=== PATIENT | female | born 2000 | race Asian ===

== ENCOUNTER 2022-12-04 08:00 | Outpatient (CLI) | payer OTHER ==
[2022-12-04 12:44] LABS: BILIRUBIN,URINE NEGATIVE (NEGATIVE); GLUCOSE, URINE (UA) NEGATIVE (NEGATIVE); KETONES,URINE (UA) TRACE mg/dL (NEGATIVE); LEUKOCYTE ESTERASE, URINE NEGATIVE (NEGATIVE); NITRITE,URINE NEGATIVE (NEGATIVE); OCCULT BLOOD,URINE NEGATIVE (NEGATIVE); PROTEIN,URINE NEGATIVE (NEGATIVE); UROBILINOGEN,URINE 0.2 (NORMAL) E.U./dL (NORMAL)
[2022-12-04 12:56] LABS: CLARITY,URINE CLEAR (CLEAR)
[2022-12-04 15:36] LABS: BACTERIA,URINE Few /HPF (None Seen); RBC,URINE 0-5 /HPF (0-5); SQUAMOUS EPITHELIAL CELL,UR FEW Squamous (<= Few); WBC,URINE 0-3 /HPF (0-5)
== END 2022-12-04 23:59 | disposition home or self-care (01) ==
LOC: LAB.WC 08:00
PROVIDERS: ATTEND Nurse Practitioner
DX: Z34.90 Encounter for supervision of normal pregnancy, unspecified, unspecified trimester (principal)
CPT/HCPCS: 81001; 87086

== ENCOUNTER 2022-12-24 12:32 | Outpatient (CLI) | payer OTHER ==
--- NOTE | 2022-12-24 16:23 | Ultrasound Report ---
PROCEDURE: OB First Trimester w/TV INDICATIONS: ROUTINE MAMMO OUTSIDE/PRIOR DATING DATA: Last menstrual period (LMP): 10/03/2022. LMP-based estimated date of delivery (KAYLEE): 07/10/2023. First dating scan (date and location): 12/24/2022. Estimated date of delivery (KAYLEE) from first dating scan: 07/15/2023. TECHNIQUE: Real-time scanning was performed of the fetus and maternal pelvic organs, with image documentation. Endovaginal scanning was also performed to better visualize the fetus and maternal ovaries. COMPARISON: FINDINGS: Embryo: Single intrauterine is identified with crown-rump length measuring 4.2 cm correspo nding to 11 Heart rate: 167 bpm. Measurement variability in dating: +/- 4 weeks by LMP, +/- 7 days by mean sac diameter (use before 6 weeks gestation if crown-rump length not able to be measured), +/- 5 days by crown-rump length (6-12 weeks gestation). Maternal organs: Ovaries are within normal limits. IMPRESSION: Single live intrauterine with ultrasound gestational age of 11 weeks 0 days Recommend follow-up imaging at 20-22 weeks for dates and anatomy. weeks 0 days. Reviewed by: Rea Mcdonough MD on 12/24/2022 4:21 PM PDT Approved by: Rea Mcdonough MD on 12/24/2022 4:21 PM PDT Station ID: [id number]
== END 2022-12-24 12:33 | disposition home or self-care (01) ==
LOC: DI 12:32
PROVIDERS: ATTEND Nurse Practitioner
DX: Z34.91 Encounter for supervision of normal pregnancy, unspecified, first trimester (principal)

== ENCOUNTER 2022-12-30 08:00 | Outpatient (CLI) | payer OTHER ==
[2022-12-30 21:48] LABS: CHLAMYDIA TRACHOMATIS DNA NEGATIVE (NEGATIVE); NEISSERIA GONORRHOEAE DNA NEGATIVE (NEGATIVE); TRICHOMONAS VAGINALIS DNA NEGATIVE (NEGATIVE)
== END 2022-12-30 23:59 | disposition home or self-care (01) ==
LOC: LAB.WC 08:00
PROVIDERS: ATTEND Obstetrics & Gynecology
DX: Z34.90 Encounter for supervision of normal pregnancy, unspecified, unspecified trimester (principal)
CPT/HCPCS: 36415; 85025; 86592; 86762; 86787; 86803; 86850; 86900; 86901; 87340; 87389; 87491; 87591; 87661

== ENCOUNTER 2022-12-30 14:36 | Outpatient (CLI) | payer OTHER ==
[2022-12-30 15:01] LABS: BASOPHILS % (AUTO) 0.4 %; EOSINOPHILS # (AUTO) 0.1 10^3/uL (0.0-0.7); EOSINOPHILS % (AUTO) 1.3 %; HCT - HEMATOCRIT 38.8 % (37.0-47.0); HGB - HEMOGLOBIN 12.5 g/dL (12.0-16.0); LYMPHOCYTES # (AUTO) 1.2 10^3/uL (1.5-3.5); LYMPHOCYTES % (AUTO) 15.1 %; MEAN CORPUSCULAR HEMOGLOBIN 21.2 pg (27.0-31.0); MEAN CORPUSCULAR HGB CONC 32.2 g/dL (32.0-36.0); MEAN CORPUSCULAR VOLUME 65.8 fL (81.0-99.0); MONOCYTES # (AUTO) 0.6 10^3/uL (0.0-1.0); MONOCYTES % (AUTO) 7.4 %; NEUTROPHILS # (AUTO) 6.2 10^3/uL (1.5-6.6); NEUTROPHILS % (AUTO) 75.4 %; PLT - PLATELET COUNT 279 10^3/uL (130-450); RED CELL DISTRIBUTION WIDTH 18.8 % (12.0-15.0); WHITE BLOOD COUNT 8.2 x10^3/uL (4.8-10.8)
[2022-12-30 15:37] LABS: PLATELET ESTIMATE, MANUAL NORMAL (130-450,000) (NORMAL); PLATELET MORPHOLOGY NORMAL APPEARANCE (NORMAL); SLIDE REVIEW? Indicated
[2022-12-31 04:09] LABS: HCV AB Non Reactive (Non Reactive); HIV SCREEN 4TH GENERATION Non Reactive (Non Reactive)
[2022-12-31 08:09] LABS: RPR Non Reactive (Non Reactive)
[2022-12-31 09:10] LABS: VARICELLA-ZOSTER AB IGG 2245 index (Immune >165)
== END 2022-12-30 14:37 | disposition home or self-care (01) ==
LOC: LAB 14:36
PROVIDERS: ATTEND Nurse Practitioner
DX: Z34.90 Encounter for supervision of normal pregnancy, unspecified, unspecified trimester (principal)
CPT/HCPCS: 36415; 85025; 86592; 86762; 86787; 86803; 86850; 86900; 86901; 87340; 87389

== ENCOUNTER 2023-02-19 13:37 | Outpatient (CLI) | payer OTHER ==
--- NOTE | 2023-02-19 15:46 | Ultrasound Report ---
PROCEDURE: OB Detailed Eval INDICATIONS: SUPERVISION OF OUTSIDE/PRIOR DATING DATA: Last menstrual period (LMP): 10/03/2022. LMP-based estimated date of delivery (KAYLEE): 07/10/2023. First dating scan (date and location): 12/24/2022. Estimated date of delivery (KAYLEE) from first dating scan: 07/15/2023. The below data below was generated using the ultrasound KAYLEE of 07/15/2023 TECHNIQUE: Real-time scanning was performed of the fetus, with image documentation and biometric measurements. COMPARISON: OB ultrasound 12/24/2022. FINDINGS: General: A single living intrauterine gestation is present. Presentation: Breech Placenta: Placental position is posterior, without previa. Amniotic fluid index: 9.6 cm, lower limits of normal for gestational age. Largest pocket 3.1 cm. heart rate: 158 beats per minute. Maternal cervical canal: 4.1 cm cm long; normal length is 2.5 cm or more. biometrics: Biparietal diameter: 4.2 cm, 18 weeks 5 days Head circumference: 16.3 cm, 19 weeks 0 days Abdominal circumference: 13.1 cm, 18 weeks 5 days Femur length: 2.8 cm, 18 weeks 5 days Estimated gestational age from initial scan: 19 weeks 1 day Composite gestational age from present scan: 18 weeks 5 days Estimated weight and percentile: 254 g, 23rd percentile Measurement variability in biometric dating: +/- 10 days from 12-20 weeks gestation, +/- 2 weeks from 20-30 weeks gestation, +/- 3 weeks at 30 weeks gestation or later. Anatomic survey: Neuro: Ventricles are normal at less than 10 mm. Cisterna magna is normal at 3-11 mm. Cerebellum i s normal in size and morphology. Nuchal skin fold: Normal at less than 6 mm between 14 and 20 weeks gestational age. Face: Nose and lips, facial profile are normal. Spine: No evidence for spina bifida. Heart: 4-chambered heart is present, with normal ventricular outflow tracts. Diaphragm: Diaphragm is intact. Stomach: Left-sided stomach is present. Kidneys: No hydronephrosis. Normal is less than 5 mm in 2nd trimester, less than 7 mm in 3rd trimester. Cord: 3 vessel cord has orthotopic insertion. Bladder: Normal in size. Extremities: All 4 extremities are visualized. IMPRESSION: 1. Owens living intrauterine at 18 weeks 5 days based on today's ultrasound. Fetus is i n the 23rd percentile for weight. 2. Normal placenta and amniotic fluid. 3. Normal and complete anatomic survey. Reviewed by: Sorin Barraza MD on 02/19/2023 3:44 PM PDT Approved by: Sorin Barraza MD on 02/19/2023 3:44 PM PDT Station ID: [id number]
== END 2023-02-19 13:38 | disposition home or self-care (01) ==
LOC: DI 13:37
PROVIDERS: ATTEND Obstetrics & Gynecology
DX: Z34.92 Encounter for supervision of normal pregnancy, unspecified, second trimester (principal)

== ENCOUNTER 2023-04-07 09:42 | Outpatient (CLI) | payer OTHER ==
[2023-04-07 11:02] LABS: HCT - HEMATOCRIT 36.4 % (37.0-47.0); HGB - HEMOGLOBIN 11.5 g/dL (12.0-16.0); MEAN CORPUSCULAR HEMOGLOBIN 22.1 pg (27.0-31.0); MEAN CORPUSCULAR HGB CONC 31.6 g/dL (32.0-36.0); MEAN PLATELET VOLUME 10.9 fL (7.9-10.8); RED BLOOD COUNT 5.2 10^6/uL (4.20-5.40); RED CELL DISTRIBUTION WIDTH 18.1 % (12.0-15.0); WHITE BLOOD COUNT 8.4 x10^3/uL (4.8-10.8)
== END 2023-04-07 09:43 | disposition home or self-care (01) ==
LOC: LAB 09:42
PROVIDERS: ATTEND Obstetrics & Gynecology
DX: Z34.90 Encounter for supervision of normal pregnancy, unspecified, unspecified trimester (principal); Z36.89 Encounter for other specified antenatal screening
CPT/HCPCS: 36415; 82950; 85027

== ENCOUNTER 2023-06-16 08:00 | Outpatient (CLI) | payer OTHER | END 2023-06-16 23:59 | disposition home or self-care (01) | LOC: LAB.WC 08:00 | PROVIDERS: ATTEND Obstetrics & Gynecology | DX: Z36.85 Encounter for antenatal screening for Streptococcus B (principal) | CPT/HCPCS: 87797 ==

== ENCOUNTER 2023-07-07 14:05 | Inpatient (IN) | payer OTHER ==
[2023-07-07] MEDS ORDERED: OXYTOCIN 10 UNIT/ML VIAL IM PRN ×2 (14:07)
[2023-07-07] MEDS ORDERED: hydrALAZINE INJ 20 MG/ML VIAL IVP PRN ×2 (14:07)
[2023-07-07] MEDS ORDERED: NIFEdipine 10 MG CAPSULE PO PRN (14:07)
[2023-07-07] MEDS ORDERED: ACETAMINOPHEN 500 MG TABLET PO PRN (14:07)
[2023-07-07] MEDS ORDERED: TRANEXAMIC ACID IN NACL 1,000 MG/100 ML BAG IV PRN (14:07)
[2023-07-07] MEDS ORDERED: METOCLOPRAMIDE 10 MG TABLET PO PRN (14:07)
[2023-07-07] MEDS ORDERED: CARBOPROST TROMETHAMINE 250 MCG/ML AMP IM PRN ×2 (14:07)
[2023-07-07] MEDS ORDERED: TERBUTALINE 1 MG/ML VIAL SUBQ PRN (14:07)
[2023-07-07] MEDS ORDERED: diphenhydrAMINE INJ 50 MG/ML VIAL IVP PRN (14:07)
[2023-07-07] MEDS ORDERED: LACTATED RINGERS 1,000 ML IV PRN (14:07)
[2023-07-07] MEDS ORDERED: LABETALOL 20 MG/4 ML SYRINGE IVP PRN ×3 (14:07)
[2023-07-07] MEDS ORDERED: OXYTOCIN/SODIUM CHLORIDE 500 ML IV PRN ×2 (14:07)
[2023-07-07] MEDS ORDERED: miSOPROStoL 200 MCG TABLET BC PRN ×2 (14:07)
[2023-07-07] MEDS ORDERED: fentaNYL 100 MCG/2 ML VIAL IVP PRN (14:07)
[2023-07-07] MEDS ORDERED: CALCIUM CARBONATE CHEW 500 MG TABLET PO PRN (14:07)
[2023-07-07] MEDS ORDERED: SODIUM CHLORIDE FLUSH 0.9% 10 ML SYRINGE IVP PRN (14:07)
[2023-07-07] MEDS ORDERED: METHYLERGONOVINE 0.2 MG/ML VIAL IM PRN ×2 (14:07)
[2023-07-07] MEDS ORDERED: ONDANSETRON ODT 4 MG TABLET PO PRN (14:07)
[2023-07-07] MEDS ORDERED: miSOPROStoL 200 MCG TABLET PR PRN (14:07)
[2023-07-07] MEDS ORDERED: lidocaine 1% 20 ML MDV ID PRN ×2 (14:07)
[2023-07-07 14:33] LABS: BASOPHILS % (AUTO) 0.4 %; EOSINOPHILS # (AUTO) 0.1 10^3/uL (0.0-0.7); EOSINOPHILS % (AUTO) 0.6 %; HCT - HEMATOCRIT 38.5 % (37.0-47.0); HGB - HEMOGLOBIN 12.3 g/dL (12.0-16.0); LYMPHOCYTES # (AUTO) 1.4 10^3/uL (1.5-3.5); LYMPHOCYTES % (AUTO) 14.5 %; MEAN CORPUSCULAR HEMOGLOBIN 21.8 pg (27.0-31.0); MEAN CORPUSCULAR HGB CONC 31.9 g/dL (32.0-36.0); MEAN CORPUSCULAR VOLUME 68.3 fL (81.0-99.0); MEAN PLATELET VOLUME 11.3 fL (7.9-10.8); MONOCYTES # (AUTO) 0.7 10^3/uL (0.0-1.0); MONOCYTES % (AUTO) 7.1 %; NEUTROPHILS # (AUTO) 7.3 10^3/uL (1.5-6.6); NEUTROPHILS % (AUTO) 76.4 %; NRBC ABSOLUTE COUNT (AUTO) 0.04 x10^3/uL; NUCLEATED RED BLOOD CELLS AUTO 0.4 /100WBC; PLT - PLATELET COUNT 350 10^3/uL (130-450); RED BLOOD COUNT 5.64 10^6/uL (4.20-5.40); RED CELL DISTRIBUTION WIDTH 16.9 % (12.0-15.0); WHITE BLOOD COUNT 9.6 x10^3/uL (4.8-10.8)
[2023-07-07 14:34] LABS: BILIRUBIN,URINE NEGATIVE (NEGATIVE); GLUCOSE, URINE (UA) NEGATIVE (NEGATIVE); KETONES,URINE (UA) NEGATIVE (NEGATIVE); LEUKOCYTE ESTERASE, URINE NEGATIVE (NEGATIVE); NITRITE,URINE NEGATIVE (NEGATIVE); OCCULT BLOOD,URINE NEGATIVE (NEGATIVE); PROTEIN,URINE NEGATIVE (NEGATIVE); UROBILINOGEN,URINE 0.2 (NORMAL) E.U./dL (NORMAL)
[2023-07-07 14:46] LABS: SLIDE REVIEW? Indicated
[2023-07-07 14:53] LABS: CREATININE,URINE 73.2 mg/dL; PROTEIN/CREATININE RATIO,URINE 0.2 (<=0.2)
[2023-07-07 14:54] VITALS: O2SAT 98
[2023-07-07 14:58] LABS: CLARITY,URINE CLEAR (CLEAR)
[2023-07-07] MEDS ORDERED: SODIUM CHLORIDE FLUSH 0.9% 10 ML SYRINGE IVP SCH (15:00)
[2023-07-07 15:12] LABS: CREATININE 0.6 mg/dL (0.6-1.3); URIC ACID 4.8 mg/dL (2.3-6.6)
[2023-07-07] MEDS: miSOPROStoL 100 MCG TABLET VG SCH ×2 (15:13→19:38)
[2023-07-07 15:34] LABS: PLATELET ESTIMATE, MANUAL NORMAL (130-450,000) (NORMAL); PLATELET MORPHOLOGY NORMAL APPEARANCE (NORMAL)
--- NOTE | 2023-07-07 20:05 | HISTORY & PHYSICAL EXAMINATION ---
Admit History - Visit Reason Visit Reason: Other (blood pressure in clinic is elevated 140/100 x 2. sent to L&D for induction.) - : 1 Care: positive: [facility] Risk/History: positive: induced HTN, Labor induction Complications This : positive: None Smoking Status: Never smoker - Mother's Labs GBS: positive: Group B Step Negative - HPI Current EDU 07/10/23 Gestation 39 Weeks and 4 Days 1 Vital Signs Temperature 98.8 F 07/07/23 14:23 Heart Rate 80 07/07/23 14:23 Respiratory Rate 16 07/07/23 14:23 Blood Pressure 120/72 07/07/23 14:23 O2 Saturation 99 07/07/23 14:23 Temperature 98.8 F 07/07/23 14:33 Heart Rate 73 07/07/23 15:16 Respiratory Rate 17 07/07/23 15:16 Blood Pressure 125/82 H 07/07/23 15:16 O2 Saturation 98 07/07/23 14:46 If not protocol: Oxygen Flow, liters/minute Meds/Allgy - Allergies Allergies/Adverse Reactions: Allergies Allergy/AdvReac Type Severity Reaction Status Date / Time No Known Drug Allergies Allergy Verified 07/07/23 14:30 Review of Systems - Cardiovascular Cariovascular: reports: Edema (mild edema) - Gastrointestinal Gastrointestinal: denies: Nausea, Vomiting - Neurological Neurological: denies: Headache Physical - Abdominal Exam Vital Signs: Temp Pulse Resp BP Pulse Ox O2 Flow Rate 98.8 F 73 17 125/82 H 98 07/07/23 14:33 07/07/23 15:16 07/07/23 15:16 07/07/23 15:16 07/07/23 14:46 Contraction Intensity: positive: Mild Uterine Resting Tone: positive: Soft - Monitoring Strip Review: positive: Category I - Presentation Presentation: positive: Vertex - Vaginal Exam Membranes: positive: Membranes intact Dilation (in cm): 1.5 Effacement (%): 70 Station: positive: -3 Cervical Position: positive: Midposition - Speculum Exam Speculum Exam Performed: positive: No Plan for Labor - Plan For Labor I expect patient to be DC'd or transferred within 96 hours.: Yes Plan for Labor: admit for labor induction for htn in clinic. 39+wks now. no other issues. pih labs normal. will start with miso. consent for induction reviewed and signed. 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 will discuss with her tomorrow and assess for need for hb electrophoresis to evaluate for hemoglobinopathy trait.
[2023-07-08] MEDS: miSOPROStoL 100 MCG TABLET VG SCH ×2 (04:02)
--- NOTE | 2023-07-08 09:24 | PROVIDER PROGRESS NOTE ---
Labor Progress Note - Uterine Monitoring Uterine Monitoring Mode: positive: External toco Contraction Frequency (min/apart): 2 Contraction Intensity: positive: Moderate - Monitoring Monitor Mode: positive: External ultrasound Heart Rate Baseline: 135 Heart Rate Variability: positive: Moderate (6-25 bmp) Accelerations: positive: Present, 15x15 Decelerations: positive: Variable, Intermittent (<50% x20 min) Strip Review: positive: Category II - Labor Progress Note Labor Progress Note/Additional Text: Patient unchanged but akira too frequently for another dose of misoprostol. Consented to cervical ripening balloon. Failed with 80 mL fluid in each balloon. Patient tolerated procedure well.
--- NOTE | 2023-07-08 15:14 | ANESTHESIA ---
Pre-Anesthesia VS, & Labs - Diagnosis labor induction - Procedure labor epidural (upon request) Vital Signs: Temp Pulse Resp BP Pulse Ox O2 Flow Rate 37.1 C 73 17 125/82 H 98 07/07/23 14:33 07/07/23 15:16 07/07/23 15:16 07/07/23 15:16 07/07/23 14:46 Height: 5 ft 3 in Weight (kg): 87.543 kg Body Mass Index: 34.2 BMI Classification: Obese - NPO Other (clears after placement) - Is Patient ?: Yes - Lab Results Current Lab Results: Laboratory Tests 07/07/23 14:10: Blood Type O POSITIVE, Antibody Screen NEGATIVE 07/07/23 14:10: Creatinine 0.6, Estimated GFR (MDRD) 123, Uric Acid 4.8, AST 30, ALT 24 07/07/23 14:10: WBC 9.6, RBC 5.64 H, Hgb 12.3, Hct 38.5, MCV 68.3 L, MCH 21.8 L, MCHC 31.9 L, RDW 16.9 H, Plt Count 350, MPV 11.3 H, Neut # (Auto) 7.3 H, Lymph # (Auto) 1.4 L, White # (Auto) 0.7, Eos # (Auto) 0.1, Baso # (Auto) 0.0, Absolute Nucleated RBC 0.04, Nucleated RBC % 0.4, Manual Slide Review Indicated, Platelet Estimate NORMAL (130-450,000), Platelet Morphology NORMAL APPEARANCE, RBC Morph Micro Appear 1+ POLYCHROMASIA Fish Bones: 07/07/23 14:10 07/07/23 14:10 Home Medications and Allergies Active Medications Acetaminophen (Acetaminophen 500 Mg Tablet) 1,000 mg PO Q8H PRN PRN Reason: Mild Pain or Fever>38C(100.4F) Calcium Carbonate/Glycine (Calcium Carbonate Chew 500 Mg Tablet) 1,000 mg PO Q6HR PRN PRN Reason: Heartburn Carboprost Tromethamine (Carboprost Tromethamine 250 Mcg/Ml Amp) 250 mcg IM .ONCE PRN PRN Reason: Hemorrhage Carboprost Tromethamine (Carboprost Tromethamine 250 Mcg/Ml Amp) 250 mcg IM Q15M PRN PRN Reason: Step 4: Hemorrhage protocol Stop: 07/12/23 14:07 Diphenhydramine HCl (Diphenhydramine Inj 50 Mg/Ml Vial) 25 mg IVP Q6H PRN PRN Reason: Allergy Symptoms Fentanyl (Fentanyl 100 Mcg/2 Ml Vial) 50 mcg IVP Q1H PRN PRN Reason: Severe Pain (score 7-10) Hydralazine HCl (Hydralazine Inj 20 Mg/Ml Vial) 5 - 10 mg IVP Q20M PRN; Protocol PRN Reason: SBP> or= 160 OR DBP> or= 110 Hydralazine HCl (Hydralazine Inj 20 Mg/Ml Vial) 10 mg IVP .ONCE PRN; Protocol PRN Reason: SBP> or= 160 OR DBP> or= 110 Lactated Ringer's (Lr) 500 mls @ 999 mls/hr IV PRN PRN PRN Reason: labor issues Tranexamic Acid (Tranexamic 1,000 Mg/100ml-Nacl) 1,000 mg in 100 mls @ 600 mls/hr IV Q30M PRN PRN Reason: EBL >1200mL and within 3hr Oxytocin/Sodium Chloride (Pitocin/Sodium Chloride) 500 mls @ 999 mls/hr IV PRN PRN; Protocol PRN Reason: POST- HEMORR PREVENTION Stop: 07/12/23 14:07 Tranexamic Acid (Tranexamic 1,000 Mg/100ml-Nacl) 1,000 mg in 100 mls @ 600 mls/hr IV .ONCE PRN PRN Reason: EBL >1200mL and within 3hr Stop: 07/12/23 14:07 Labetalol HCl (Labetalol 20 Mg/4 Ml Syringe) 20 - 80 mg IVP Q10M PRN; Protocol PRN Reason: SBP> or= 160 OR DBP> or= 110 Labetalol HCl (Labetalol 20 Mg/4 Ml Syringe) 20 mg IVP .ONCE PRN; Protocol PRN Reason: SBP> or= 160 OR DBP> or= 110 Labetalol HCl (Labetalol 20 Mg/4 Ml Syringe) 20 - 40 mg IVP Q10M PRN; Protocol PRN Reason: SBP> or= 160 OR DBP> or= 110 Lidocaine HCl (Lidocaine 1% 20 Ml Mdv) 20 ml ID .ONCE PRN PRN Reason: PERINEAL REPAIR Stop: 07/12/23 14:07 Methylergonovine Maleate (Methylergonovine 0.2 Mg/Ml Vial) 0.2 mg IM .ONCE PRN PRN Reason: Hemorrhage Metoclopramide HCl (Metoclopramide 10 Mg Tablet) 5 mg PO Q6HR PRN PRN Reason: Nausea / Vomiting Misoprostol (Misoprostol 200 Mcg Tablet) 600 mcg BC .ONCE PRN PRN Reason: Hemorrhage Misoprostol (Misoprostol 200 Mcg Tablet) 800 mcg NE .ONCE PRN PRN Reason: Hemorrhage Misoprostol (Misoprostol 200 Mcg Tablet) 800 mcg BC .ONCE PRN PRN Reason: Step 3: Hemorrhage protocol Stop: 07/12/23 14:07 Misoprostol (Misoprostol 100 Mcg Tablet) 25 mcg VG Q4HR GREY Last Admin: 07/08/23 04:02 Dose: 25 mcg Nifedipine (Nifedipine 10 Mg Capsule) 10 - 20 mg PO Q20M PRN; Protocol PRN Reason: SBP> or= 160 OR DBP> or= 110 Ondansetron HCl (Ondansetron Odt 4 Mg Tablet) 4 mg PO Q4HR PRN PRN Reason: Nausea / Vomiting Oxytocin (Oxytocin 10 Unit/Ml Vial) 10 unit IM .ONCE PRN PRN Reason: Step One if no IV access. Sodium Chloride (Sodium Chloride Flush 0.9% 10 Ml Syringe) 10 ml IVP PRN PRN PRN Reason: NEEDED PER PROVIDER ORDERS Sodium Chloride (Sodium Chloride Flush 0.9% 10 Ml Syringe) 10 ml IVP Q8H GREY Terbutaline Sulfate (Terbutaline 1 Mg/Ml Vial) 0.25 mg SUBQ .ONCE PRN PRN Reason: Tachystole Allergies/Adverse Reactions: Allergies Allergy/AdvReac Type Severity Reaction Status Date / Time No Known Drug Allergies Allergy Verified 07/07/23 14:30 Anes History & Medical History - Anesthetic History Anesthesia Complications: reports: No previous complications - Medical History Cardiovascular: reports: Hypertension Pulmonary: reports: None Smoking Status: Never smoker - Obstetrical History : 1 Events: reports: induced HTN, Labor induction Complications: reports: None Exam General: Alert, Oriented x3 Dental: WNL Mouth Opening: Greater than 4 Fingerbreadths Neck Mobility: Normal Mallampati classification: II Respiratory: Lungs clear Cardiovascular: Regular rate Plan Anesthesia Type: Epidural Consent for Procedure(s) Verified and Reviewed: Yes Code Status: Attempt Resuscitation ASA classification: 2-Mild systemic disease Is this case an emergency?: No
[2023-07-08] MEDS ORDERED: OXYTOCIN/SODIUM CHLORIDE 500 ML IV SCH (17:00)
[2023-07-08] MEDS ORDERED: METHYLERGONOVINE 0.2 MG/ML VIAL IM PRN (20:01)
--- NOTE | 2023-07-09 03:26 | DELIVERY NOTE ---
Delivery Note - Labor Labor: positive: Other (induced by miso & hargrove bulb) - Delivery Method Delivery Method: positive: Spontaneous vaginal delivery - Cervical Ripening Method Cervical Ripening Method: positive: Balloon device, Misoprostil - Presentation Presentation: positive: Vertex - Nuchal Cord Nuchal Cord: positive: None - Anesthetic Anesthetic Type: - Amniotic Fluid Description Amniotic Fluid Description: positive: Clear - Episiotomy Type Episiotomy Type: positive: None - Laceration Laceration: positive: None - Delivery Outcome Delivery Outcome: positive: Livebirth - [place]: positive: Placed in direct skin contact with mother, Stimulated, Warmed sex: positive: Male - Cord Cord: positive: 3 vessels - Placenta Placenta: positive: Intact, Other (marginal cord inserion) - Estimated Blood Loss Estimated Blood Loss (in cc): 100 - Post Delivery Events Post Delivery Events: positive: No post delivery events - Delivery Comments (Free Text/Narrative) Delivery Comments (Free Text/Narrative): On 09 Jul 2023 at 0247 patient delivered a viable male over intact perineum. Baby ROT, L shoulder anterior, shoulders and body delivered without difficulty. Baby crying spontaneously, placed in direct skin contact with mom. Apgars 9/9. Cord clamped and cut x2. Placenta delivered spontaneously at 0257, inspected, intact with 3VC, marginal cord insertion. Fundus firm with IV pitocin. No tears or lacerations. EBL 100. All counts correct, both mom and baby recovering well. Stage I: 1h16m Stage II: 2h47m Stage III: 10m.
[2023-07-09] MEDS ORDERED: LACTATED RINGERS 1,000 ML IV PRN (03:27)
[2023-07-09] MEDS ORDERED: WITCH HAZEL/GLYCERIN 1 PAD TOP PRN (03:27)
[2023-07-09] MEDS ORDERED: ONDANSETRON 4 MG/2 ML VIAL IVP PRN (03:27)
[2023-07-09] MEDS ORDERED: ONDANSETRON ODT 4 MG TABLET TL PRN (03:27)
[2023-07-09] MEDS: ACETAMINOPHEN 325 MG TABLET PO PRN ×3 (05:44→19:01)
[2023-07-09] MEDS: IBUPROFEN 600 MG TABLET PO PRN ×3 (05:45→20:35)
[2023-07-09] MEDS: DOCUSATE SODIUM 100 MG CAPSULE PO SCH ×2 (09:38→20:35)
[2023-07-10] MEDS: ACETAMINOPHEN 325 MG TABLET PO PRN ×2 (04:29→13:24)
[2023-07-10] MEDS: IBUPROFEN 600 MG TABLET PO PRN ×2 (04:29→13:25)
[2023-07-10 04:55] VITALS: BP 126/67
--- NOTE | 2023-07-10 05:46 | DISCHARGE SUMMARY ---
"Discharge Summary Admit Date: 07/07/23 Discharge Date: 07/10/23 Discharging Provider: deana Primary Care Provider: obdulio Code Status: Attempt Resuscitation Condition at Discharge: Good Discharge Disposition: 01 Home, Self Care - DIAGNOSES Admission Diagnoses: gestational hypertension intrauterine at term Discharge Diagnoses with Status of Each Condition: gestational hypertension - resolved IUP at term resolved post . - HPI History of Present Illness: Pt well, lochia appropriate, + amb, + void, + camryn PO, + flatus Feeding going well -- breast Bonding with baby reviewed discharge instructions and precautions all questions answered going home with FOB, has safe home to go home to [facility] is present and will be supportive x 2 weeks before returning home to [place]. Denies: F/C/N/V/CP/SOB Denies: dizziness, weakness, lightheadedness, difficulty with ambulation, palpitations Denies: GUERRERO / visual changes - CONSULTS | PROCEDURES Procedures: IOL with miso and harrgove balloon post care - ALLERGIES Allergies/Adverse Reactions: Allergies Allergy/AdvReac Type Severity Reaction Status Date / Time No Known Drug Allergies Allergy Verified 07/07/23 14:30 - PHYSICAL EXAM AT DISCHARGE General Appearance: positive: No acute distress, Alert Eyes Bilateral: positive: Normal inspection ENT: positive: ENT inspection nml Neck: positive: Nml inspection Respiratory: positive: Chest non-tender, No respiratory distress, Breath sounds nml Cardiovascular: positive: Regular rate & rhythm, No gallop Abdomen: positive: Non-tender, Other ([place] 1 below U) Skin: positive: Color nml, No rash, Warm, Dry Extremities: positive: Non-tender, No pedal edema Neurologic/Psychiatric: positive: Oriented x3 - LABS Result Diagrams: 07/07/23 14:10 07/07/23 14:10 - QUALITY (Female Hip Fx Only) Was patient sent home on osteoporosis medication?: No - FOLLOW UP Follow Up: 1 week with OB and continue care with PAWI. - TIME SPENT Time Spent in Discharge (Minutes): 20"
--- NOTE | 2023-07-10 05:53 | Discharge Plan ---
Discharge Plan Problem Reviewed?: Yes Disposition: Home, Self Care Condition: Good Prescriptions: Ibuprofen [Motrin] 600 mg PO Q6H PRN #40 tab PRN Reason: Abdominal Pain Diet: Regular Activity Restrictions: No Restrictions Shower Restrictions: No Driving Restrictions: No (though prefer someone else to drive) Weight Bearing: Full Weight Instruction Topics: Vaginal After, Depression , Childbirth Breast Care Health Concerns: routine Plan of Treatment: routine routine Assessment: doing well all milestones met well well supported OK to D/C home. No Smoking: If you smoke, Please STOP! Call for help. Follow-up with: Júnior Luz MD [Provider Admit Priv/Credential] -
[2023-07-10] MEDS: DOCUSATE SODIUM 100 MG CAPSULE PO SCH (13:25)
--- NOTE | 2023-07-10 15:23 | Labor Flowsheet ---
Labor Flowsheet Datetime Report Generated by CPN: 07/10/2023 15:23 Datetime: 07/10/2023 04:29 VITAL SIGNS NBP Sys/Shanthi/Mean (mmHg): 126 : 67 : 81 Pulse: 52 LaborFlag: Labor Datetime: 07/09/2023 06:45 Membranes Ruptured Date/Time: 07/08/2023 19:07 Datetime: 07/09/2023 05:45 Temperature Route: Oral Datetime: 07/09/2023 02:29 UTERINE ACTIVITY Monitor Mode: External Monitor Interventions for UA: [place] Adjusted Frequency (min): 2 Quality: Moderate Pattern: Normal: <= 5 Contractions in 10 Minutes Resting Tone (Palpate): Relaxed ASSESSMENT A Monitor Mode: External US Monitor Interventions for FHR: Ultrasound Adjusted FHR Baseline Rate : 145 Variability: Moderate 6-25 bpm Accelerations: 10X10 Decelerations: Early Category: Category I STAGE 2 Pushing: Coached on Pushing Pushing Progress: with Pushing Datetime: 07/09/2023 02:19 SpO2 (%): 100 Datetime: 07/09/2023 02:14 Pushing Position: Pushing with Contractions Datetime: 07/09/2023 02:00 Temperature (C): 37.0 Datetime: 07/09/2023 00:00 Duration (sec): 60-180 Datetime: 07/08/2023 23:57 VAGINAL EXAM Dilatation (cm): 10.0 Effacement (%): 100 Station: 1 Exam by: Datetime: 07/08/2023 22:46 Vaginal Bleeding: Normal Show Cervix, Position: Midposition Datetime: 07/08/2023 22:28 Patient Care Comments: up to bathroom Datetime: 07/08/2023 19:06 Membrane Status: Ruptured Membranes Rupture Method: Spontaneous Amniotic Fluid Color: Clear Amniotic Fluid Amount: Small Amniotic Fluid Odor: Normal Datetime: 07/08/2023 19:00 FHR Baseline Changes: No Baseline Change Datetime: 07/08/2023 17:28 Comments: MHR tracing Datetime: 07/08/2023 17:18 PATIENT CARE Patient Position/Activity: Standing; Walking Datetime: 07/08/2023 15:52 I/O Interventions: Up to BR Datetime: 07/08/2023 13:00 Contraction Comments: unable to adequately assess due to patient positioning Datetime: 07/08/2023 10:36 Hygiene: Complete Bath Datetime: 07/08/2023 10:01 MEDICATIONS Cervical Ripening Agents: Garcia Balloon; Cytotec @ Medication Comments: 80/80 Datetime: 07/08/2023 10:00 Actions for Decelerations: IV Bolus; Provider Notified Datetime: 07/08/2023 00:00 Cervix, Consistency: Moderate Cervical Ripening Agents Other: miso 25mg Datetime: 07/07/2023 19:00 COMMUNICATION Communication: Report Given to @ Bita-Bianka Coretta, RN Datetime: 07/07/2023 17:23 Respirations: 18 Datetime: 07/07/2023 14:24 Stage of : Labor
== END 2023-07-10 14:00 | disposition home or self-care (01) | DRG 807 ==
LOC: WFO 14:05 → FBP 14:05 → WFO 14:06 → FBP 14:07
PROVIDERS: ADMIT Obstetrics & Gynecology; ATTEND Obstetrics & Gynecology
PROC: 0U7C7ZZ Dilation of Cervix, Via Natural or Artificial Opening (ICD-10-PCS; 2023-07-07)
PROC: 3E0DXGC Introduction of Other Therapeutic Substance into Mouth and Pharynx, External Approach (ICD-10-PCS; 2023-07-07)
PROC: 10E0XZZ Delivery of Products of Conception, External Approach (ICD-10-PCS; principal; 2023-07-09)
DX: O13.4 Gestational [pregnancy-induced] hypertension without significant proteinuria, complicating childbirth (principal); Z37.0 Single live birth; Z3A.39 39 weeks gestation of pregnancy; O76 Abnormality in fetal heart rate and rhythm complicating labor and delivery
CPT/HCPCS: 36415; 59409; 81003; 82565; 82570; 84156; 84450; 84460; 84550; 85025; 86850; 86900; 86901; A9270; J7120